=== PATIENT | male | born 2000 | race Caucasian/White ===

== ENCOUNTER 2018-08-16 08:42 | Outpatient (CLI) | payer BC, OTHER ==
[2018-08-16] MEDS ORDERED: Iopamidol 300 61% 50 ML VIAL FS ONE (10:20)
[2018-08-16] MEDS ORDERED: Gadobenate Dimeglumine 529 MG/1 ML (20ML VIAL) ONE ×2 (10:20→15:17)
[2018-08-16] MEDS ORDERED: EPINEPHrine 1 MG/ML AMP ONE (10:20)
[2018-08-16] MEDS ORDERED: Lidocaine 1% (PF) 30 ML VIAL ONE (10:20)
--- NOTE | 2018-08-16 13:31 | RAD ---
RIGHT ELBOW ARTHROGRAM: Date: 08/16/18 INDICATION: Right elbow injury, pain. PROCEDURE: Informed consent was obtained. The patient was escorted to the procedural suite. The patient was plac ed with the right elbow in flexion. The right elbow was prepped and draped in the standard sterile fa shion. Topical anesthesia was achieved with buffered 1% lidocaine. A 25 gauge needle was then advance d into the joint space of the right elbow, which was confirmed with small volume radiopaque contrast. Subsequently, 6 mL of contrast cocktail containing Gadolinium radiopaque contrast, saline, lidocaine , and epinephrine was instilled into the right elbow joint, confirmed with fluoroscopic imaging. Imag ing was stored for documentation. No procedural complication. The patient was then transferred to MRI to undergo MR arthrogram of right elbow. Reference separate report for further details. IMPRESSION: Technically successful right elbow arthrogram. POS: [facility]
--- NOTE | 2018-08-16 15:03 | MRI ---
MRI ARTHROGRAM OF THE RIGHT ELBOW: INDICATION: Right elbow pain. COMPARISON: Right elbow radiographs dated 08/16/2018. TECHNIQUE: Multiplanar multisequence MR images were obtained of the right elbow following intraarticular adminis tration of a dilute Gadolinium solution. Please see that arthrogram for further details. FINDINGS: Motion artifact limits image detail. No definite full-thickness tear is seen involving the anterior band of the ulnar collateral ligament. The radiocollateral and the lateral ulnar collateral ligament appear intact. There is some mild ed bipin seen near the origin of the FDS, near its origin at the medial epicondyle, likely related to mild musculature strain. The biceps, brachialis, and triceps insertions appear within normal limits. Vi sualized ulnar nerve is normal appearing. No intraarticular body is grossly evident. A small amount of gas is seen within the posterior olecranon process. IMPRESSION: 1. Mild muscular strain involving the flexor digitorum superficialis muscle near the origin at the m edial humeral epicondyle. 2. The anterior band of the ulnar collateral ligament appears intact within the limitations of the e xam. Motion artifact slightly limits image detail. No additional abnormality is grossly evident. POS: [facility]
== END 2018-08-16 08:43 | disposition home or self-care (01) ==
LOC: RAD 08:42
PROVIDERS: ATTEND Orthopaedic Surgery
DX: M25.521 Pain in right elbow (principal); S56.211A Strain of other flexor muscle, fascia and tendon at forearm level, right arm, initial encounter
CPT/HCPCS: 24220; A9579; J0171; J2001; J7050